=== PATIENT | female | born 1995 | race Two or more races ===

== ENCOUNTER 2024-11-09 08:25 | Observation (INO) | payer MEDICAID ==
[~2024-11-09] VITALS: Ht 149.9 cm; Wt 78.5 kg
--- NOTE | 2024-11-09 09:18 | DVH ---
CLINICAL HISTORY: decreased movement COMPARISON: None TECHNIQUE: biophysical profile was performed. Transabdominal sonographic images of the fetus we re obtained. FINDINGS: The fetus is in cephalic position. heart rate measures 118 BPM. Amniotic fluid index measures 9.1 cm. The placenta is posterior in position with no evidence of previa or abruption. BPP profile is an overall score of 8/8, with 2/2 points for breathing, with at least one episode of breathing over a 30 second duration during a 30 minute observation, 2/2 points for m ovements, with 3 or more discrete body or limb movements, 2/2 points for tone, with one or more episodes of extremity extension with return to flexion, or opening and closing of hand, and 2/ 2 points for amniotic fluid, with at least 1 pocket of amniotic fluid that measures 2 cm in 2 perpend icular planes. IMPRESSION: 1. BPP score of 8/8. 2. Additional findings as described above.
[2024-11-09] MEDS: ceFAZolin 1GM/50ML 50 ML IV ONE (09:57)
[2024-11-09] MEDS: LACTATED RINGER'S 1,000 ML IV ONE (09:58)
--- NOTE | 2024-11-10 09:06 | DVHDS2 ---
Obstetrics Discharge Summary Obstetrics Discharge Summary Date of Admission: Nov 09, 2024 Date of Discharge: Nov 09, 2024 Reason For Admission: Observational/Evaluation ( Status) Discharge Diagnosis: Others (UTI diagnosed, "Decreased FM" reasuring Fetus) Discharge Information: Activity, Diet (Routine), Medications (None), Instructions (kick count labor precautions), Discharge to (Home), Accompanied by, Discarge date (11/10/2025) MOE STARR DO Nov 10, 2024 09:06
== END 2024-11-09 11:19 | disposition home or self-care (01) ==
LOC: LDRP 08:25
PROVIDERS: ADMIT Obstetrics & Gynecology; ATTEND Obstetrics & Gynecology
DX: O36.8130 Decreased fetal movements, third trimester, not applicable or unspecified (principal); O23.43 Unspecified infection of urinary tract in pregnancy, third trimester; N39.0 Urinary tract infection, site not specified; Z98.890 Other specified postprocedural states; Z79.899 Other long term (current) drug therapy; Z3A.32 32 weeks gestation of pregnancy
CPT/HCPCS: 59025; 76818; 81002; 82962; 94760; 96361; 96365; G0378; J0690; 96360

== ENCOUNTER 2024-11-24 23:13 | Observation (INO) | payer MEDICAID ==
[~2024-11-24] VITALS: Ht 149.9 cm; Wt 81.2 kg
--- NOTE | 2024-11-25 00:39 | DVH ---
OB ULTRASOUND, LIMITED CLINICAL INDICATION: Decreased movement TECHNIQUE: Multiple grayscale ultrasound and M-mode images were obtained of the pelvis for evaluation of intrauterine . COMPARISON: US BIOPHYSICAL PROFILE on DOS: 11/09/24 FINDINGS /impression: Biophysical Profile 05/23 breathin movements: 2 tone: 2 Amniotic fluid: 2 ( ANA 10.9 cm) heart rate: 149 beats per minute position: Cephalic Placenta location posterior
[2024-11-25 00:41] LABS: Urine Amorphous Crystal FEW /hpf (None Seen); Urine Bacteria FEW /hpf (None Seen); Urine Blood Negative /uL (Negative); Urine Clarity Turbid (Clear); Urine Color Colorless (Yellow); Urine Mucus FEW (None Seen); Urine Protein, UAD Negative (Negative); Urine Specific Gravity 1.007 (1.001-1.035); Urine Squamous Epithelial Cell MANY /hpf (<5); Urine Urobilinogen Normal (Negative); Urine WBC 9 /HPF (0-5); Urine pH 5.5 (5.0-9.0)
--- NOTE | 2024-11-25 01:23 | DVHDS2 ---
Physician Discharge Progress N Final Diagnosis: IUP at 34w 4d Reactive NST, normal BPP Operations or Procedures: Operations or Procedures NST, Biophysical Profile. UA Other Interventions Other Interventions S: 29yo G1,[address] for decreased movement. She re ports,no UCs, no leakage of fluid, vaginal bleeding, LÓPEZ, vision changes or epigastric pain. Stated she vomited once after eating peanut butter & jelly sandwich. States she is getting care with Dr Morse in [place], has abnormal 1hr GCT, yet to do diagnostic testing of 3hr GTT, told baby has IUGR. Getting NST twice a week. Has h/o bariatric surgery in 2019 She denies, dysuria, urinary frequency or urgency O: A&O x3 NAD. Afebrile, VSS Respiration: unlabored heart and lung sounds normal. Abdomen: Gravid, non-tender to palpation No CVA or suprapubic tenderness Extremities: No edema POC Blood glucose 84mg/dL BPP 8/8 FHR baseline 125bpm, mod variability with acceleration, no deceleration, no contraction. A: Normal BPP Reactive NST h/o Bariatric surgery Abnormal glucose screening test Glucosuria P: Discharge patient home Advised to f/u with her OB provider in 1-2days ( states she has appointment scheduled with her OB doctor on 11/27/24 and NST on 11/26/24 Continue surveillance 2x/week 3rd trimester emergency S&S [facility], PTL & pre-eclampsia precautions reviewed with pt; advised to seek health care if any Condition on Discharge: Stable Disposition: Home Discharge Instructions: Diet: Regular Diet comment: protein -rich diet Activity: No Restrictions, As Tolerated Activity comment: Balance activities with rest periods Medications: None Follow Up Care: Discharge Statement: "Patient was advised to return to the ER or call 911 if any headaches, dizziness, shortness of breath, chest pain, abdominal pain, bleeding, fevers, or worsening of medical condition. Patient was counseled about treatment plan, medications, possible side effects, patientverbalized understanding. All questions were answered to the best of my ability. This discharge took greater then 30 minutes in planning, reviewing documentation, counseling the patient, and discussing with other team members." STEVENSON STARKS CNM Nov 25, 2024 01:23
== END 2024-11-25 01:36 | disposition home or self-care (01) ==
LOC: LDRP 23:13
PROVIDERS: ADMIT Obstetrics & Gynecology; ATTEND Obstetrics & Gynecology
DX: O36.8130 Decreased fetal movements, third trimester, not applicable or unspecified (principal); O36.5930 Maternal care for other known or suspected poor fetal growth, third trimester, not applicable or unspecified; O21.2 Late vomiting of pregnancy; Z3A.34 34 weeks gestation of pregnancy; Z79.899 Other long term (current) drug therapy; Z98.890 Other specified postprocedural states
CPT/HCPCS: 76818; 81001; 81002; 82962; 94760; G0378; 59025; 82948